=== PATIENT | female | born 1995 | race Two or more races ===

== ENCOUNTER 2023-10-20 03:10 | Emergency (ER) | payer BC ==
[2023-10-20 03:22] VITALS: BMI 26.6
[2023-10-20] MEDS ORDERED: morphine SULFATE 4 MG/ML VIAL ONE (03:22)
[2023-10-20] MEDS: morphine CARPU-JECT 4 MG/1 ML DISP.SYRIN IVPUSH ONE (03:37)
[2023-10-20] MEDS ORDERED: ONDANSETRON 4 MG/2 ML VIAL ONE (03:40)
[2023-10-20] MEDS: ONDANSETRON 4 MG/2 ML VIAL IVPUSH ONE (03:46)
[2023-10-20] MEDS: SODIUM CHLORIDE 1,000 ML IV STA (03:46)
[2023-10-20 03:57] LABS: BASO % 0.6 % (0-2.0); EOS % 1.4 % (0-4.5); HEMATOCRIT 37.7 % (32.4-45.2); HEMOGLOBIN 13.4 GM/dL (10.7-15.3); LYMPH % 38.8 % (8-40); MCH 30.7 pg (25.7-33.7); MCHC 35.6 g/dl (32.0-36.0); MEAN CELL VOLUME 86.4 fl (80-96); MEAN PLT VOLUME 8.7 fl (7.5-11.1); MONO % 6.4 % (3.8-10.2); NEUT % 52.8 % (42.8-82.8); PLATELET COUNT 322 10^3/uL (134-434); RBC 4.36 M/mm3 (3.60-5.2); RDW 12.8 % (11.6-15.6); WHITE BLOOD COUNT 7.1 K/mm3 (4.0-10.0)
[2023-10-20] MEDS: morphine CARPU-JECT 2 MG/1 ML DISP.SYRIN IVPUSH ONE (04:09)
[2023-10-20 04:21] LABS: PROTHROMBIN TIME (PATIENT) 11.3 SEC (9.7-13.0)
[2023-10-20 04:24] LABS: ACTIVATED PTT 26.6 SECONDS (25.2-36.5)
[2023-10-20 04:27] LABS: CHLORIDE 110 mmol/L (98-107); SODIUM 142 mmol/L (136-145)
[2023-10-20 04:29] LABS: CALCIUM 8.8 mg/dL (8.5-10.1)
[2023-10-20 04:30] LABS: ANION GAP 10 mmol/L (4-13); BLOOD UREA NITROGEN 10.8 mg/dL (7-18); CO2 23 mmol/L (21-32); GLUCOSE,RANDOM 99 mg/dL (74-106)
[2023-10-20 04:33] LABS: CREATININE 0.8 mg/dL (0.55-1.3); SGOT/AST 23 U/L (15-37); SGPT/ALT 24 U/L (13-61)
[2023-10-20 04:34] LABS: BILIRUBIN,TOTAL 0.2 mg/dL (0.2-1); TOT PROT 7.4 g/dl (6.4-8.2)
[2023-10-20 04:36] LABS: ALK PHOS 48 U/L (45-117)
[2023-10-20] MEDS ORDERED: HYDROmorphone HCl 2 MG/ML VIAL ONE (07:14)
[2023-10-20] MEDS: HYDROmorphone HCl 2 MG/ML VIAL IVPUSH ONE (07:17)
[2023-10-20 08:35] LABS: PH,URINE 5.5 (5.0-8.0); URINE APPEARANCE CLEAR; URINE BILIRUBIN NEGATIVE (NEGATIVE); URINE COLOR YELLOW; URINE GLUCOSE (UA) NEGATIVE (NEGATIVE); URINE KETONE TRACE (NEGATIVE); URINE LEUK ESTERASE NEGATIVE (NEGATIVE); URINE NITRITE NEGATIVE (NEGATIVE); URINE PROTEIN NEGATIVE (NEGATIVE); URINE UROBILINOGEN 0.2 mg/dL (0.2-1.0)
[2023-10-20 08:36] LABS: HCG,QUALITATIVE URINE Negative
[2023-10-20 09:12] VITALS: BP 109/73; PULSE 87; RESP 19; TEMP 98
== END 2023-10-20 09:21 | disposition home or self-care (01) ==
LOC: JER 03:10
PROC: 3E033NZ Introduction of Analgesics, Hypnotics, Sedatives into Peripheral Vein, Percutaneous Approach (ICD-10-PCS; principal; 2023-10-20)
PROC: 3E033GC Introduction of Other Therapeutic Substance into Peripheral Vein, Percutaneous Approach (ICD-10-PCS; 2023-10-20)
PROC: 3E033NZ Introduction of Analgesics, Hypnotics, Sedatives into Peripheral Vein, Percutaneous Approach (ICD-10-PCS; 2023-10-20)
PROC: 3E033NZ Introduction of Analgesics, Hypnotics, Sedatives into Peripheral Vein, Percutaneous Approach (ICD-10-PCS; 2023-10-20)
PROC: 3E0337Z Introduction of Electrolytic and Water Balance Substance into Peripheral Vein, Percutaneous Approach (ICD-10-PCS; 2023-10-20)
DX: N83.202 Unspecified ovarian cyst, left side (principal); R10.2 Pelvic and perineal pain; R11.10 Vomiting, unspecified; R00.0 Tachycardia, unspecified; R10.30 Lower abdominal pain, unspecified
CPT/HCPCS: 36415; 76830-TC; 80053; 81003; 83690; 84702; 84703; 85025; 85610; 85730; 87086; 99284-25